=== PATIENT | female | born 1970 | race American Indian/Alaskan Native ===

== ENCOUNTER 2017-11-16 11:55 | Observation (INO) | payer MEDICAID ==
[2017-11-16 12:24] LABS: BASO % 0.7 % (0.0-2.0); EOS % 0.3 % (0.0-4.0); HEMOGLOBIN 8.9 g/dL (11.0-16.0); LYMPH # 1.4 K/uL (1.0-4.3); MEAN CELL VOLUME 82.3 fL (81.0-99.0); MEAN CORPUSCULAR HGB CONC 32.8 g/dL (33.0-37.0); MONO # 0.4 K/uL (0.0-0.8); MONO % 8.1 % (0.0-10.0); NEUT # 3.7 K/uL (1.8-7.0); NEUT % 65.9 % (50.0-75.0); RBC 3.3 Mil/uL (3.80-5.20); RED CELL DISTRIBUTION WIDTH 16.5 % (11.5-14.5); WHITE BLOOD COUNT 5.5 K/uL (4.8-10.8)
--- NOTE | 2017-11-16 13:00 | RAD ---
Date of service: 11/16/2017 PROCEDURE: CHEST RADIOGRAPH, 1 VIEW HISTORY: SOB COMPARISON: None available. FINDINGS: LUNGS: Clear. PLEURA: No pneumothorax or pleural fluid seen. CARDIOVASCULAR: Normal. OSSEOUS STRUCTURES: No significant abnormalities. VISUALIZED UPPER ABDOMEN: Normal. OTHER FINDINGS: None. IMPRESSION: No active disease.
--- NOTE | 2017-11-16 13:02 | C.PDOC ---
History Of Present Illness 47 y/o female presents to the ER complaining of left-sided chest pain which has been present for the past 2 days. Patient states that she has intermittent chest pain since September 2017. Patient reports that she has associated SOB. She is also complaining of epigastric discomfort, she notes that she had 1 episode of non-bloody vomiting last night. She called her PMD, and he referred her to the ER for treatment and admission. Denies having SOB, fever, and chills. Time Seen by Provider: 11/16/17 12:07 Chief Complaint (Nursing): Chest Pain History Per: Patient History/Exam Limitations: no limitations Onset/Duration Of Symptoms: Days Current Symptoms Are (Timing): Still Present Severity: Moderate Past Medical History Reviewed: Historical Data, Nursing Documentation, Vital Signs Vital Signs: Last Vital Signs Temp 98.7 F 11/16/17 12:01 Pulse 64 11/16/17 12:31 Resp 19 11/16/17 12:01 BP 139/61 11/16/17 12:31 Pulse Ox 97 11/16/17 13:55 - Medical History PMH: Asthma, Hypercholesterolemia Surgical History: Denies: Pacemaker - [facility] CORONAR ARTERIOGR-2 CATH (04/21/12) LEFT HEART CARDIAC CATH (04/21/12) LT HEART ANGIOCARDIOGRAM (04/21/12) Family History: States: No Known Family Hx - Social History Hx Alcohol Use: No Hx Substance Use: No - Immunization History Hx Tetanus Toxoid Vaccination: No Hx Influenza Vaccination: Yes Hx Pneumococcal Vaccination: No Review Of Systems Except As Marked, All Systems Reviewed And Found Negative. Constitutional: Negative for: Fever, Chills Cardiovascular: Positive for: Chest Pain Physical Exam - Physical Exam Appears: Non-toxic, No Acute Distress Skin: Normal Color, Warm, Dry Head: Atraumatic, Normacephalic Eye(s): bilateral: Normal Inspection Nose: Normal Oral Mucosa: Moist Neck: Supple Chest: Symmetrical Cardiovascular: Rhythm Regular Respiratory: Normal Breath Sounds, No Rales, No Rhonchi, No Wheezing Gastrointestinal/Abdominal: Normal Exam, Soft, No Tenderness, No Guarding, No Rebound Neurological/Psych: Oriented x3, Normal Speech ED Course And Treatment - Laboratory Results Result Diagrams: 11/16/17 12:21 11/16/17 12:21 ECG: Interpreted By Me, Viewed By Me ECG Rhythm: Sinus Bradycardia Interpretation Of ECG: Sinus Bradycardia with incomplete RBBB, normal axises, and non specific ST/ T wave changes Rate From EC O2 Sat by Pulse Oximetry: 97 (RA) Pulse Ox Interpretation: Normal - Radiology CXR: Interpreted by Me, Viewed By Me CXR Interpretation: Yes: No Acute Disease Medical Decision Making Medical Decision Making: Assessment: Chest Pain Plan: --Labs --CXR --Protonix IV 1409 - discussed with DR. Amador and will admit to tele observation Disposition Discussed With DrGrzegorz: Ant Amador Doctor Will See Patient In The: Hospital Counseled Patient/Family Regarding: Studies Performed, Diagnosis - Disposition Disposition: HOSPITALIZED Disposition Time: 14:10 Condition: STABLE Forms: [facility] (Sinhala) - POA Core Measure Indicators: Chest Pain - Clinical Impression Clinical Impression: Chest pain - Scribe Statement The provider has reviewed the documentation as recorded by the Amadoibe Roland Elkins Provider Attestation: All medical record entries made by the Scribe were at my direction and personally dictated by me. I have reviewed the chart and agree that the record accurately reflects my personal performance of the history, physical exam, medical decision making, and the department course for this patient. I have also personally directed, reviewed, and agree with the discharge instructions and disposition.
[2017-11-16 13:50] LABS: ALBUMIN 3.7 g/dL (3.5-5.0); ALT/SGPT 24 U/L (9-52); AST/SGOT 31 U/L (14-36); BLOOD UREA NITROGEN 14 mg/dL (7-17); CALCIUM 9.2 mg/dl (8.6-10.4); GFR AFRICAN-AMERICAN > 60; GFR NON-AFRICAN AMERICAN > 60; LIPASE 86 U/L (23-300)
[2017-11-16 13:57] LABS: B-TYPE NATRIURETIC PEPTIDE 192 pg/mL (0-450)
--- NOTE | 2017-11-16 18:49 | CP.PCM.HP ---
History of Present Illness - History of Present Illness History of Present Illness: cc: chest pain Ms. Juan Manuel Herrmann is a 47-year-old -[place] female who called the office this morning intractable pain over anterior chest wall accompanied by tingling and numbness over the left upper extremity. This went from around 10 PM Thursday night until about 4 AM when she finally fell asleep. Patient had been having vaginal bleeding from suspected fibroids which produced symptoms of fatigue and dyspnea with exertion. She reported that she took pain medication ( Tylenol) which did not help with her pain. On a previous trip to another hospital's emergency room, patient was told she was having acid reflux and sent home. Since this is the second time this is happened it is not unlikely that patient may be having an anginal equivalent and so I suggested that she go to the emergency room for evaluation and work-up of her symptoms. Present on Admission - Present on Admission Any Indicators Present on Admission: No History of DVT/PE: No History of Uncontrolled Diabetes: No Urinary Catheter: No Decubitus Ulcer Present: No History Surgical Site Infection Following: Bariatric Surgery Review of Systems - Constitutional Constitutional: Anorexia, Chills, Daytime Sleepiness, Excessive Sweating, Increased Appetite - EENT Eyes: Change in Vision Ears: absent: As Per HPI, Decreased Hearing, Ear Discharge, Ear Pain, Tinnitus, Abnormal Hearing, Disequilibrium, Dizziness, Other Nose/Mouth/Throat: absent: As Per HPI, Epistaxis, Nasal Congestion, Nasal Discharge, Nasal Obstruction, Nasal Trauma, Nose Pain, Post Nasal Drip, Sinus Pain, Sinus Pressure, Bleeding Gums, Change in Voice, Dental Pain, Dry Mouth, Dysphagia, Halitosis, Hoarsness, Lip Swelling, Mouth Lesions, Mouth Pain, Odynophagia, Sore Throat, Throat Swelling, Tongue Swelling, Facial Pain, Neck Pain, Neck Mass, Other - Breasts Breasts: absent: As Per HPI, Change in Shape, Mass, Pain, Nipple Discharge, Nipple Inversion (quizzed again on proper breast exam technique), Skin Changes, Swelling, Other - Cardiovascular Cardiovascular: absent: As Per HPI, Acrocyanosis, Chest Pain, Chest Pain at Rest , Chest Pain with Activity, Claudication, Diaphoresis, Dyspnea, Dyspnea on Exertion, Edema, Irregular Heart Rhythm, Pain Radiating to Arm/Neck/Jaw, Leg Edema, Leg Ulcers, Lightheadedness, Orthopnea, Palpitations, Paroxysmal Nocturnal Dyspnea, Pedal Edema, Radiating Pain, Rapid Heart Rate, Slow Heart Rate, Syncope, Other - Respiratory Respiratory: absent: As Per HPI, Cough, Dyspnea, Hemoptysis, Dyspnea on Exertion , Wheezing, Snoring, Stridor, Pain on Inspiration, Chest Congestion, Excessive Mucous Production, Change in Mucous Color, Pain with Coughing, Other - Gastrointestinal Gastrointestinal: Abdominal Pain, Cramping, Nausea - Genitourinary Genitourinary: absent: As Per HPI, Change in Urinary Stream, Difficulty Urinating, Dysuria, Flank Pain, Hematuria, Pyuria, Nocturia, Urinary Incontinence, Urinary Frequency, Urinary Hesitance, Urinary Urgency, Voiding Freq/Small Amts, Freq UTI, Hx Renal/Bladder Calculi, Hx /Renal Surgery, Bladder Distension, Other - Reproductive: Female Reproductive:Female: Menses >/= 8 Days, Menses Variable, Vaginal Discharge - Menstruation Menstruation: Amenorrhea, Menses Variable - Endocrine Endocrine: Cold Intolorance Past Patient History - Past Medical History & Family History Past Medical History?: Yes - Past Social History Smoking Status: Never Smoked Chewing Tobacco Use: No Cigar Use: No Occupation: unemployed Alcohol: None Drugs: Denies Home Situation {Lives}: With Family Domestic Violence: Negative - CARDIAC Hx Cardiac Disorders: Yes (new EKG change) Hx Hypercholesterolemia: Yes Hx Pacemaker: No - PULMONARY Hx Asthma: Yes - NEUROLOGICAL Hx Paralysis: No - HEMATOLOGICAL/ONCOLOGICAL Hx Blood Transfusions: Yes Hx Blood Transfusion Reaction: No - MUSCULOSKELETAL/RHEUMATOLOGICAL Hx Musculoskeletal Disorders: No - GASTROINTESTINAL Hx Gastroesophageal Reflux: Yes - PSYCHIATRIC Hx Substance Use: No - SURGICAL HISTORY Hx Surgeries: Yes Hx Section: Yes (X 3) Hx Herniorrhaphy: Yes Other/Comment: "RIGHT ANKLE SURGERY" - ANESTHESIA Hx Anesthesia: Yes Hx Anesthesia Reactions: No Hx Malignant Hyperthermia: No Meds Allergies/Adverse Reactions: Allergies Allergy/AdvReac Type Severity Reaction Status Date / Time Penicillins Allergy Severe ITCHING Verified 11/17/17 06:00 aspirin Allergy ITCHING Verified 11/17/17 06:00 Physical Exam - Constitutional Appears: No Acute Distress - Head Exam Head Exam: NORMAL INSPECTION, NORMOCEPHALIC - Eye Exam Eye Exam: Normal appearance Pupil Exam: NORMAL ACCOMODATION - ENT Exam ENT Exam: Mucous Membranes Moist, Normal Exam - Neck Exam Neck exam: Positive for: Normal Inspection - Respiratory Exam Respiratory Exam: Clear to Auscultation Bilateral, NORMAL BREATHING PATTERN - Cardiovascular Exam Cardiovascular Exam: REGULAR RHYTHM - GI/Abdominal Exam GI & Abdominal Exam: Normal Bowel Sounds - Extremities Exam Extremities exam: Positive for: normal inspection, tenderness - Back Exam Back exam: NORMAL INSPECTION - Psychiatric Exam Psychiatric exam: Normal Affect, Normal Mood - Skin Skin Exam: Dry, Intact Results - Vital Signs Recent Vital Signs: Last Vital Signs Temp 98 F 11/16/17 17:26 Pulse 61 11/16/17 17:26 Resp 18 11/16/17 17:26 BP 115/63 11/16/17 17:26 Pulse Ox 100 11/16/17 17:26 - Labs Result Diagrams: 11/16/17 12:21 11/17/17 03:04 Labs: Laboratory Results - last 24 hr 11/16/17 11/16/17 12:21 12:21 WBC 5.5 RBC 3.30 L Hgb 8.9 L Hct 27.2 L MCV 82.3 MCH 27.0 MCHC 32.8 L RDW 16.5 H Plt Count 243 MPV 9.0 Neut % (Auto) 65.9 Lymph % (Auto) 25.0 Meade % (Auto) 8.1 Eos % (Auto) 0.3 Baso % (Auto) 0.7 Neut # (Auto) 3.7 Lymph # (Auto) 1.4 Meade # (Auto) 0.4 Eos # (Auto) 0.0 Baso # (Auto) 0.0 Sodium 137 Potassium 4.1 Chloride 105 Carbon Dioxide 28 Anion Gap 8 L BUN 14 Creatinine 0.7 Est GFR ( Amer) > 60 Est GFR (Non-Af Amer) > 60 Random Glucose 82 Calcium 9.2 Total Bilirubin 0.7 AST 31 ALT 24 Alkaline Phosphatase 53 Troponin I < 0.0120 NT-Pro-B Natriuret Pep 192 Total Protein 7.5 Albumin 3.7 Globulin 3.8 Albumin/Globulin Ratio 1.0 Lipase 86 - EKG Data EKG Interpreted by: Myself Rate: Normal - EKG Data When Compared to Previous EKG: Significant Changes Interpretation: Acute Conduction Defect Assessment & Plan (1) Chest pain Assessment and Plan: though cardiac enzymes are normal, can still be anginal equivalent 2ndry to uncompensated anemia Status: Acute (2) Acute blood loss anemia Assessment and Plan: wndry to uterline leiomyomata causing excessive bleeding. Hysterectomy is planned and pt is undergoing cardiopulmonary clearance consultations until this problem occurred. Will consult Dr. Rosa to inquire as to whether he wants to do surgery now or still later. Status: Acute (3) Uterine leiomyoma Assessment and Plan: cause of vaginal bleeding, for documentation purposes, will obtain transabdominal and transvaginal ultrasounds of the affected area Status: Acute (4) Menometrorrhagia Assessment and Plan: conswistent with pt's fibroids causing excessive bleeding Status: Acute Decision To Admit - Pt Status Changed To: Hospital Disposition Of: Observation - Admit Certification Admit to Inpatient:: Admit ro [facility] for evaluation of chest pain as anginal equivalent 2ndry to acute blood loss anemia.Will do preminary tests and refer to Cardio and Pulmo if bleeding cannot be controlled and will need emergency hysterectomy. - InPatient: Physician Admission Certification:: Admit ro [facility] for evaluation of chest pain as anginal equivalent 2ndry to acute blood loss anemia.Will do preminary tests and refer to Cardio and Pulmo if bleeding cannot be controlled and will need emergency hysterectomy. - . Bed Request Type: Regular
[2017-11-16 20:12] LABS: IRON 86 ug/dL (37-170)
[2017-11-16 20:28] LABS: % IRON SATURATION 23 (20-55); TOTAL IRON BINDING CAPACITY 379 ug/dL (250-450)
[2017-11-16 20:52] LABS: FERRITIN 7.5 ng/mL
[2017-11-16 21:23] LABS: FOLATE 13.2 ng/mL
[2017-11-16] MEDS ORDERED: Home Med 1 UNIT (Atorvastatin [Lipitor] 10 MG) PO SCH (22:00)
[2017-11-16] MEDS ORDERED: Rosuvastatin Calcium 2.5 mg Tab PO SCH (22:00)
[2017-11-17 03:44] LABS: ALB/GLOB RATIO 1.1 (1.0-2.1); ALBUMIN 3.6 g/dL (3.5-5.0); ALT/SGPT 24 U/L (9-52); AST/SGOT 21 U/L (14-36); BLOOD UREA NITROGEN 13 mg/dL (7-17); CALCIUM 9.1 mg/dl (8.6-10.4); GFR AFRICAN-AMERICAN > 60; GFR NON-AFRICAN AMERICAN > 60
[2017-11-17] MEDS ORDERED: Levothyroxine 200 MCG TAB PO SCH (06:30)
[2017-11-17 08:10] LABS: HEMOGLOBIN 9.7 g/dL (11.0-16.0); MEAN CELL VOLUME 82.7 fL (81.0-99.0); MEAN CORPUSCULAR HEMOGLOBIN 27.4 pg (27.0-31.0); MEAN CORPUSCULAR HGB CONC 33.2 g/dL (33.0-37.0); RBC 3.54 Mil/uL (3.80-5.20); RED CELL DISTRIBUTION WIDTH 16.4 % (11.5-14.5); WHITE BLOOD COUNT 6.1 K/uL (4.8-10.8)
--- NOTE | 2017-11-17 12:06 | CARD ---
APPROVED REPORT Date of service: 11/16/2017 EKG Measurement Heart [id number] <Conclusion> Sinus bradycardia Incomplete right bundle branch block Borderline ECG
[2017-11-17] MEDS: Pneumococcal 23-Valent Vaccine IM ONE ×2 (12:21→12:53)
[2017-11-17 15:54] VITALS: PULSE 52
[2017-11-17 16:20] VITALS: BP 128/77; RESP 18; TEMP 98.2; O2SAT 100
[2017-11-17] MEDS ORDERED: Diclofenac Sodium Delayed Release 75 mg EC Tab PO SCH (18:00)
[2017-11-18] MEDS ORDERED: Levothyroxine 200 MCG TAB PO SCH (06:30)
--- NOTE | 2017-11-18 11:57 | CARD ---
APPROVED REPORT Date of service: 11/17/2017 EXAM: Two-dimensional and M-mode echocardiogram with Doppler and color Doppler. Other Information Quality : GoodRhythm : INDICATION Abnormal EKG/Arrhythmia Chest Pain RISK FACTORS Hyperlipidemia 2D DIMENSIONS IVSd0.8 (0.7-1.1cm)Aortic Root (2D)2.4 (2.0-3.7cm) LVDd5.3 (3.9-5.9cm)PWd0.8 (0.7-1.1cm) LVDs3.5 (2.5-4.0cm)FS (%) 33.7 % LVEF (%)62.0 (>50%) M-Mode DIMENSIONS RVDd1.66 (2.1-3.2cm)Left Atrium (MM)4.39 (2.5-4.0cm) IVSd0.85 (0.7-1.1cm)Aortic Root2.47 (2.2-3.7cm) LVDd5.99 (4.0-5.6cm)Aortic Cusp Exc.1.78 (1.5-2.0cm) PWd0.68 (0.7-1.1cm)FS (%) 41 % LVDs3.55 (2.0-3.8cm)LVEF (%)71 (>50%) Mitral Valve MV E Nuplfvpc993.7cm/sMV A Ivpnqynq73.0cm/sE/A ratio1.2 TDI E/Lateral E'0.0E/Medial E'0.0 Tricuspid Valve TR Peak [id number]/sTR Peak Gr.[id number] LEFT VENTRICLE The left ventricle is normal size. There is normal left ventricular wall thickness. The left ventricular function is normal. The left ventricular ejection fraction is within the normal range. No regional wall motion abnormalities noted. The left ventricular diastolic function is normal. No left ventricle thrombus noted on this study. There is no ventricular septal defect visualized. There is no left ventricular aneurysm. There is no mass noted in the left ventricle. RIGHT VENTRICLE The right ventricle is normal size. There is normal right ventricular wall thickness. The right ventricular systolic function is normal. ATRIA The left atrium size is normal. The right atrium size is normal. The interatrial septum is intact with no evidence for an atrial septal defect. AORTIC VALVE The aortic valve is normal in structure and function. No aortic regurgitation is present. There is no aortic valvular stenosis. There is no aortic valvular vegetation. MITRAL VALVE The mitral valve is normal in structure and function. There is no evidence of mitral valve prolapse. There is no mitral valve stenosis. Mitral regurgitation is trace to mild. TRICUSPID VALVE The tricuspid valve is normal in structure and function. There is mild tricuspid regurgitation. Right ventricular systolic pressure is estimated at less than 30 mmHg. There is no tricuspid valve prolapse or vegetation. There is no tricuspid valve stenosis. PULMONIC VALVE The pulmonary valve is normal in structure and function. There is no pulmonic valvular regurgitation. There is no pulmonic valvular stenosis. GREAT VESSELS The aortic root is normal in size. The ascending aorta is normal in size. The pulmonary artery is normal. The IVC is normal in size and collapses >50% with inspiration. PERICARDIAL EFFUSION The pericardium appears normal. There is no pleural effusion. <Conclusion> The left ventricular function is normal. The left ventricular ejection fraction is within the normal range. No regional wall motion abnormalities noted.
== END 2017-11-17 18:10 | disposition home or self-care (01) ==
LOC: C.ER 11:55 → C.9E 14:09 → C.6T 16:12
PROVIDERS: ADMIT Family Medicine; ATTEND Family Medicine
DX: I20.8 Other forms of angina pectoris (principal); D62 Acute posthemorrhagic anemia; D25.9 Leiomyoma of uterus, unspecified; N92.1 Excessive and frequent menstruation with irregular cycle; J45.909 Unspecified asthma, uncomplicated; E78.00 Pure hypercholesterolemia, unspecified; K21.9 Gastro-esophageal reflux disease without esophagitis; Z98.891 History of uterine scar from previous surgery
CPT/HCPCS: 36415; 36430; 71045; 80053; 82607; 82728; 82746; 83540; 83550; 83690; 83880; 84484; 85025; 85027; 85730; 86850; 86900; 86920; 90471; 90732; 93005; 93306; 96374; 99285; C9113; G0378; P9051